=== PATIENT | male | born 1970 | race Caucasian/White ===

== ENCOUNTER 2019-05-25 13:45 | Emergency (ER) | payer BC ==
[~2019-05-25] VITALS: Ht 182.9 cm; Wt 149.7 kg
[2019-05-25] MEDS ORDERED: RITALIN (14:03)
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
[2019-05-25] MEDS ORDERED: TDAP DIPH,PERTUSS,TET VAC/PF 0.5 ML DISP.SYRIN IM ONE ×2 (15:00→15:35)
[2019-05-25] MEDS ORDERED: LIDOCAINE 1%-EPI 1:100,000 20 ML VIAL TP ONE (15:00)
--- NOTE | 2019-05-25 16:31 | NUR ---
Call placed to [facility] for higher level of care transfer (HAND SX), faxed facesheet and clinical summary as requested.
--- NOTE | 2019-05-25 16:59 | NUR ---
Sutures were placd by . [facility] was unable to accept pt. I called [facility] and am now waiting to hear back.
[2019-05-25] MEDS ORDERED: CEFAZOLIN 1 G VIAL ONE (17:59)
[2019-05-25] MEDS ORDERED: CEFAZOLIN 1 G VIAL IM ONE (18:00)
--- NOTE | 2019-05-25 18:05 | NUR ---
PER MD, PATIENT TO FOLLOW UP WITH ORTHO MD ON Tuesday. DC AND FOLLOW UP INSTRUCTIONS GIVEN AND EXPLAINED TO PATIENT WHO STATES HE UNDERSTANDS ALL INSTRUCTIONS.
== END 2019-05-25 18:07 | disposition home or self-care (01) ==
LOC: ER 13:45
DX: S61.511A Laceration without foreign body of right wrist, initial encounter (principal); S62.101B Fracture of unspecified carpal bone, right wrist, initial encounter for open fracture; Z79.899 Other long term (current) drug therapy; Y04.2XXA Assault by strike against or bumped into by another person, initial encounter; Y93.89 Activity, other specified; Y92.89 Other specified places as the place of occurrence of the external cause; Y99.8 Other external cause status
CPT/HCPCS: 12001; 73110; 90471; 90715; 96372; 99283; J0690; J3490; A4217; A4663